=== PATIENT | male | born 1990 | race Two or more races ===

== ENCOUNTER → 2019-01-30 12:23 | Emergency (ER) | payer BC, OTHER ==
[2019-01-30 14:44] VITALS: BP 128/109
--- NOTE | 2019-01-31 06:12 | ED ---
GI/ HPI - HPI Summary HPI Summary: Patient is a 29-year-old male presenting to the ED with left testicular pain from [facility]. Symptoms have been present times approximately 36 hours. He denies any history of STDs. He states he has had for partners in the past and these were all several years ago. He denies any penile drainage, burning, urgency or urinary frequency. Denies any PCP with tenderness or back pain. Denies any cramping pain. He does endorse some left knee pain, however states this flares up every once in a while and had a previous injury here. He does not feel it's related. Denies any fevers, sweats, chills. - History of Current Complaint Chief Complaint: EDUrogenitalProblems Time Seen by Provider: 01/30/19 12:26 Stated Complaint: LEFT TESTICULAR PAIN PER PT Hx Obtained From: Patient Onset/Duration: Started Hours Ago Timing: Constant Severity: Moderate Current Severity: Mild Pain Intensity: 5 Additional Locations for Males: Penis Associated Signs and Symptoms: Positive: Negative Aggravating Factor(s): Nothing Alleviating Factor(s): Nothing - Allergy/Home Medications Allergies/Adverse Reactions: Allergies Allergy/AdvReac Type Severity Reaction Status Date / Time No Known Allergies Allergy Verified 01/30/19 12:31 PMH/Surg Hx/FS Hx/Imm Hx Previously Healthy: Yes - Immunization History Hx Pertussis Vaccination: No Immunizations Up to Date: Yes Infectious Disease History: No Infectious Disease History: Denies: Traveled Outside the [place] in Last 30 Days - Social History Occupation: Employed Full-time Lives: With Family Alcohol Use: None Hx Substance Use: No Substance Use Type: Reports: None Hx Tobacco Use: Yes Smoking Status (MU): Former Smoker Review of Systems Constitutional: Negative Negative: Fever, Chills, Fatigue, Skin Diaphoresis Negative: Palpitations, Chest Pain Negative: Shortness Of Breath, Cough Genitourinary: Negative Positive: no symptoms reported, see HPI, other - L testicular pain Negative: Arthralgia, Myalgia Skin: Negative Neurological: Negative All Other Systems Reviewed And Are Negative: Yes Physical Exam Triage Information Reviewed: Yes Vital Signs On Initial Exam: Initial Vitals Temp Pulse Resp BP Pulse Ox 98.7 F 81 16 159/102 98 01/30/19 12:27 01/30/19 12:27 01/30/19 12:27 01/30/19 12:27 01/30/19 12:27 Vital Signs Reviewed: Yes Appearance: Positive: Well-Appearing, Well-Nourished Skin: Positive: Warm, Skin Color Reflects Adequate Perfusion Head/Face: Positive: Normal Head/Face Inspection Eyes: Positive: EOMI, Conjunctiva Clear Neck: Positive: Supple, No Lymphadenopathy Respiratory/Lung Sounds: Positive: Clear to Auscultation, Breath Sounds Present Cardiovascular: Positive: RRR, Pulses are Symmetrical in both Upper and Lower Extremities Male Genital Exam: Positive: Normal Genitalia, Epididymal Tenderness Neurological: Positive: Alert, Oriented to Person Place, Time Psychiatric: Positive: Affect/Mood Appropriate Diagnostics - Vital Signs Vital Signs Temp Pulse Resp BP Pulse Ox 01/30/19 14:44 98.2 F 86 16 128/109 97 01/30/19 12:27 98.7 F 81 16 159/102 98 - Laboratory Lab Statement: Any lab studies that have been ordered have been reviewed, and results considered in the medical decision making process. GIGU Course/Dx - Course Course Of Treatment: During the course of treatment, patient's evaluated for left testicular pain. No ecchymosis or erythema noted. No masses or swelling. Tenderness to palpation. No tenderness to palpation to the right testicle. Testicular ultrasound obtained which shows a left epididymitis. As patient denies history or chance of STDs at this time, he will be initially treated with Levaquin. Urine sample sent and we will await GC / chlamydia testing. - Diagnoses Provider Diagnoses: Acute epididymitis Discharge - Sign-Out/Discharge Documenting (check all that apply): Patient Departure Patient Received Moderate/Deep Sedation with Procedure: No - Discharge Plan Condition: Stable Disposition: HOME Prescriptions: Levofloxacin TAB* [Levaquin TAB*] 500 mg PO DAILY #10 tab Patient Education Materials: Epididymitis (ED) Referrals: Arline Delvalle MD [Primary Care Provider] - Additional Instructions: Levaquin once daily 10 days If he develop any fevers, sweats, chills, worsening symptoms, return to the ED immediately Symptoms should improve over the next 2 days - but do not discontinue your medication - Billing Disposition and Condition Condition: STABLE Disposition: Home
[2019-02-03 10:42] LABS: Neisseria gonorrhoeae (GC) RNA Negative (Negative)
== END | disposition home or self-care (01) ==
LOC: ED 12:23
DX: N45.1 Epididymitis (principal); M25.562 Pain in left knee; Z87.891 Personal history of nicotine dependence
CPT/HCPCS: 76870; 87491; 87591; 99282